=== PATIENT | male | born 1965 | race African-American/Black ===

== ENCOUNTER → 2025-09-22 12:24 | Outpatient (CLI) | payer OTHER, SELFPAY ==
[2025-09-22 13:30] LABS: Influenza A - CEPHEID Flu A NEGATIVE (NEGATIVE); Influenza B - CEPHEID Flu B NEGATIVE (NEGATIVE)
[2025-09-22 13:33] LABS: COVID-19 CEPHEID 4-PLEX PCR Negative (Negative)
== END ==
PROVIDERS: Visit Provider Nurse Practitioner Family
DX: R50.9 Fever, unspecified (principal); R53.81 Other malaise; J02.9 Acute pharyngitis, unspecified; K13.79 Other lesions of oral mucosa
CPT/HCPCS: 87070; 87205; 87637

== ENCOUNTER 2025-09-22 13:57 | Emergency (ER) | payer OTHER, SELFPAY ==
[2025-09-22 14:23] VITALS: BP 166/84; PULSE 83; RESP 18; TEMP 37.3; O2SAT 100; BMI 29.1
[2025-09-22] MEDS: ONDANSETRON 4 MG/2 ML INJ IV (14:57)
[2025-09-22] MEDS: KETOROLAC 30 MG/ML VIAL IM (16:01)
[2025-09-22 16:28] VITALS: BP 142/66; PULSE 68; RESP 18; TEMP 36.8; O2SAT 99
--- NOTE | 2025-09-23 14:45 | ED.NAVMDI ---
HPI - Nausea/Vomiting/Diarrhea <Fartun Pereira PA-C - Last Filed: 09/23/25 14:50> General Chief complaint: Nausea/Vomiting/Diarrhea Stated complaint: Mouth pain, Fever x 5 days Time Seen by Provider: 09/22/25 15:31 Source: patient Mode of arrival: Wheelchair History of Present Illness HPI Narrative: 59-year-old male presents to the ED with 4 days of painful sores in the mouth. Symptoms started with a fever the day before the mouth symptoms. Patient also has some spots on his palms. Patient works on a [employer], was given antibiotics. Patient also complains of congestion and fatigue. No chest pain, shortness of breath. Related Data Home Medications ?Medication ?Instructions ?Recorded ?Confirmed benazepril 40 mg tablet 40 mg PO DAILY 09/22/25 09/22/25 pantoprazole 40 mg tablet,delayed 40 mg PO DAILY 09/22/25 09/22/25 release rivaroxaban 20 mg tablet (Xarelto) 20 mg PO QPM PRN 09/22/25 09/22/25 Allergies Allergy/AdvReac Type Severity Reaction Status Date / Time No Known Drug Allergies Allergy Unverified 09/22/25 12:18 Review of Systems <Fartun Pereira PA-C - Last Filed: 09/23/25 14:50> Constitutional Constitutional: Denies chills, Reports fatigue, Reports fever(s), Denies frequent falls, Denies lethargy and Denies weakness Eyes Eyes: Denies change in vision, Denies eye discharge, Denies irritation and Denies loss of vision ENT Ears, Nose, Mouth, and Throat: Denies change in voice, Denies dizziness, Denies neck pain, Denies sore throat and Denies throat swelling Comments: Painful Sores in the mouth in the corner of the lips, palms of hands Cardiovascular Cardiovascular: Denies chest pain, Denies irregular heart rhythm, Denies lightheadedness, Denies palpitations, Denies dyspnea, Denies dyspnea on exertion and Denies orthopnea Respiratory Respiratory: Denies cough, Denies dyspnea, Denies dyspnea on exertion and Denies wheezing Gastrointestinal Gastrointestinal: Denies abdominal pain, Denies change in bowel habits, Denies diarrhea, Denies nausea and Denies vomiting Musculoskeletal Musculoskeletal: Denies neck pain and Denies numbness Integumentary/Breasts Skin/Breast: Denies pruritus, Denies erythema, Denies rash and Denies wounds Neurologic Neurologic: Denies behavioral changes, Denies confusion, Denies dizziness, Denies frequent falls, Denies loss of vision, Denies numbness and Denies weakness Psychiatric Psychiatric: Denies anxiety, Denies behavioral changes, Denies confusion, Denies depression, Denies homicidal ideation and Denies suicidal ideation Endocrine Endocrine: Reports fatigue, Denies flushing and Denies palpitations Hematologic/Lymphatic Hematologic/Lymphatic: Denies easy bruising Allergic/Immunologic Allergic/Immunologic: Denies urticaria, Denies throat swelling and Denies wheezing Patient History <Fartun Pereira PA-C - Last Filed: 09/23/25 14:50> Social History Smoking Status: Never smoker Smoking Status: Never smoker Exam <Fartun Pereira PA-C - Last Filed: 09/23/25 14:50> Narrative Exam Narrative: Const General:?cooperative, healthy appearing and comfortable [facility] Head:?normal to inspection Ears:?hearing grossly normal bilaterally Nose:?external nose normal Face and sinus:?normal facial exam and sinuses nontender Mouth:?vesicular oral lesions conistent with hand, foot and mouth disease. Throat:?posterior oropharynx normal; airway is patent Eyes General:?appearance normal, both eyes and all related structures Neck Neck:?normal visual inspection and no lymphadenopathy noted Resp Effort & Inspection:?normal respiratory effort Auscultation:?clear to auscultation bilaterally Cardio Rate:?regular rate Rhythm:?regular rhythm Integumentary Spots on bilateral palms consistent with hand, foot and mouth disease; no lesions on soles of bilateral feet Neuro General:?patient alert, patient awake and patient oriented x3 Initial Vital Signs Initial Vital Signs: Vital Signs Temperature 99.2 F 09/22/25 14:23 Pulse Rate 83 09/22/25 14:23 Respiratory Rate 18 09/22/25 14:23 Blood Pressure 166/84 H 09/22/25 14:23 Pulse Oximetry 100 09/22/25 14:23 Oxygen Delivery Method Room Air 09/22/25 14:23 <Supriya Collazo DO - Last Filed: 09/28/25 16:08> Initial Vital Signs Initial Vital Signs: Vital Signs Temperature 99.2 F 09/22/25 14:23 Pulse Rate 83 09/22/25 14:23 Respiratory Rate 18 09/22/25 14:23 Blood Pressure 166/84 H 09/22/25 14:23 Pulse Oximetry 100 09/22/25 14:23 Oxygen Delivery Method Room Air 09/22/25 14:23 Course <Fartun Pereira PA-C - Last Filed: 09/23/25 14:50> Orders Ordered: Discontinued Medications Ketorolac Tromethamine (Ketorolac 30 Mg/Ml Vial) 30 mg IM NOW ONE Stop: 09/22/25 15:50 Last Admin: 09/22/25 16:01 Dose: 30 mg Documented By: RB Ondansetron HCl (Ondansetron 4 Mg/2 Ml Inj) 4 mg IV NOW PRN PRN Reason: Nausea And Vomiting Last Admin: 09/22/25 14:57 Dose: 4 mg Documented By: ES Ondansetron HCl (Ondansetron 4 Mg Odt) 4 mg PO NOW PRN PRN Reason: Nausea And Vomiting <Supriya Collazo DO - Last Filed: 09/28/25 16:08> Orders Ordered: Discontinued Medications Ketorolac Tromethamine (Ketorolac 30 Mg/Ml Vial) 30 mg IM NOW ONE Stop: 09/22/25 15:50 Last Admin: 09/22/25 16:01 Dose: 30 mg Documented By: RB Ondansetron HCl (Ondansetron 4 Mg/2 Ml Inj) 4 mg IV NOW PRN PRN Reason: Nausea And Vomiting Last Admin: 09/22/25 14:57 Dose: 4 mg Documented By: ES Ondansetron HCl (Ondansetron 4 Mg Odt) 4 mg PO NOW PRN PRN Reason: Nausea And Vomiting MDM - Nausea/Vomiting/Diarrhea <ALY Gomez Last Filed: 09/23/25 14:50> Lab Data Labs: Lab Results 09/22/25 Range/Units 14:45 Urine RBC None seen (0-5/HPF) Urine WBC 0-1/hpf (0-5/HPF) Ur Squamous Epith Cells None seen (0-5/HPF) Urine Bacteria Occasional (0-1) (None) Vol Urine Centrifuged 10ml (spun) Urine Dip Bedside Urine Glucose Negative Bedside Urine Bilirubin - Negative Bedside Urine Ketone - Negative Urine Specific [place] 1.005 Bedside Urine Occult Blood - Negative Bedside Urine pH 6.0 Bedside Urine Protein - Negative Bedside Urine Urobilinogen - Negative Bedside Urine Nitrite - Negative Bedside Urine Leukocytes - Negative Esterase MDM Narrative Medical decision making narrative: 59-year-old male presents to the ED with 4 days of painful sores in the mouth. Clinical presentation consistent with [id number] disease due to Coxsackie virus. Airway is patent. Patient was given a shot of Toradol. Recommend continuing ibuprofen at home. ED return precautions discussed with patient. Patient verbalized understanding. Medical records reviewed: Yes <Supriya Collazo, - Last Filed: 09/28/25 16:08> Lab Data Labs: Lab Results 09/22/25 Range/Units 14:45 Urine RBC None seen (0-5/HPF) Urine WBC 0-1/hpf (0-5/HPF) Ur Squamous Epith Cells None seen (0-5/HPF) Urine Bacteria Occasional (0-1) (None) Vol Urine Centrifuged 10ml (spun) Urine Dip Bedside Urine Glucose Negative Bedside Urine Bilirubin - Negative Bedside Urine Ketone - Negative Urine Specific [place] 1.005 Bedside Urine Occult Blood - Negative Bedside Urine pH 6.0 Bedside Urine Protein - Negative Bedside Urine Urobilinogen - Negative Bedside Urine Nitrite - Negative Bedside Urine Leukocytes - Negative Esterase Discharge Plan Departure Patient Disposition: Home Clinical Impression: Hand, foot and mouth disease Instructions: Hand, Foot, and Mouth Disease Activity Restrictions/Additional Instructions: You were evaluated in the emergency department for painful sores in the mouth which started as a fever. You also have some spots on your hands. This is consistent with hand, foot and mouth disease which is caused by a virus called Coxsackie virus. While there is no treatment for this viral infection, treatment is through easing the pain and symptoms. You were given a an injection of Toradol in the emergency department today. You may continue taking 800 mg of ibuprofen every 8 hours with food for pain. You may also consume cold liquids which might be soothing. Your symptoms will resolve over the next 7-10 days. Return to the emergency department if you have worsening symptoms. Prescriptions: No Action pantoprazole 40 mg tablet,delayed release (DR/EC) 40 mg PO DAILY benazepril 40 mg tablet 40 mg PO DAILY Xarelto 20 mg tablet 20 mg PO QPM PRN Rx Instructions: must administer with evening meal Stand Alone Forms: Patient Portal/API ED Sign-out <Supriya Collazo, - Last Filed: 09/28/25 16:08> Cosign ED Attending Cosbettyature Attestation: I was immediately available in the department for consultation.
== END 2025-09-22 16:29 | disposition home or self-care (01) ==
PROVIDERS: Emergency Medicine; Emergency Provider Student in an Organized Health Care Education/Training Program
DX: B08.4 Enteroviral vesicular stomatitis with exanthem (principal); J02.9 Acute pharyngitis, unspecified; R50.9 Fever, unspecified; R53.83 Other fatigue
CPT/HCPCS: 81003; 81015; 87070; 87086; 87205; 87637; 96372; 96374; 99284; J1885; J2405